=== PATIENT | female | born 1995 | race Caucasian/White ===

== ENCOUNTER 2017-03-14 18:10 | Emergency (ER) | payer OTHER ==
[~2017-03-14] VITALS: Ht 167.6 cm; Wt 63.5 kg
[~2017-03-14 18:10] MED LIST: AUGMENTIN 500-1 EACH PO; CIPROFLOXACIN500 M1 PO; HYDROCODONE-AP1 EAC6 PO; IBUPROFEN 800800 MG PO; MACROBID 100 M100 M1 PO; NOHOMEMEDICATIONS; PYRIDIUM200 MG PO
[2017-03-14 18:35] LABS: URINE BILIRUBIN NEGATIVE (Negative); URINE BLOOD 3+ (Negative); URINE CLARITY CLEAR; URINE COLOR YELLOW; URINE GLUCOSE-RANDOM NEGATIVE (Negative); URINE KETONES NEGATIVE (Negative); URINE LEUKOCYTES-REFLEX NEGATIVE (Negative); URINE NITRITE-REFLEX NEGATIVE (Negative); URINE PROTEIN TRACE (Negative); URINE SPECIFIC GRAVITY 1.015 (1.005-1.030); URINE UROBILINOGEN 0.2 E.U./dl (0.2-1.0)
[2017-03-14 18:43] LABS: ABSOLUTE EOSINOPHILS 0.1 thou/uL (0.0-0.7); ABSOLUTE LYMPHOCYTES 2.1 thou/uL (0.8-5.3); ABSOLUTE MONOCYTES 0.5 thou/uL (0.0-1.2); ABSOLUTE NEUTROPHILS 6.2 thou/uL (1.6-8.1); BASOPHILS 0.4 %; EOSINOPHILS 1.6 %; LYMPHOCYTES 23.6 %; MCH 29.8 pg (26.0-34.0); MCHC 33.5 g/dL (28.0-37.0); MONOCYTES 5.9 %; MPV 8.4 fl. (7.2-11.1); NUCLEATED RBCS 0 /100WBC; PLATELET COUNT* 245 thou/uL (150-400); POLYS 68.5 %; RBC 4.37 mil/uL (4.20-5.00); RDW-CV 14.2 % (10.5-14.5)
[2017-03-14 18:43] LABS: CASTS None Seen /LPF (None Seen); MUCUS 0-3 Light strn/LPF (None Seen); SQUAMOUS >10 Many /LPF (0-3); URINE RBC >20 Many /HPF (0-2)
[2017-03-14 18:44] LABS: BACTERIA-REFLEX 1-9 Few /HPF (None Seen); CRYSTALS None Seen /LPF (None Seen); URINE WBC-REFLEX 0-5 Rare /HPF (0-5)
[2017-03-14 18:51] LABS: CALCIUM 8.9 mg/dL (8.5-10.1); CREATININE 0.7 mg/dL (0.6-1.3); POTASSIUM 3.3 mmol/L (3.5-5.1)
[2017-03-14 18:56] LABS: ALBUMIN 4.1 g/dL (3.4-5.0); TOTAL BILIRUBIN 0.3 mg/dL (<0.1-1.0)
[2017-03-14 19:45] VITALS: BP 130/77
== END 2017-03-14 19:47 | disposition home or self-care (01) ==
LOC: M.ERS 18:10
PROVIDERS: Nurse Practitioner Family
DX: N92.4 Excessive bleeding in the premenopausal period (principal); J45.909 Unspecified asthma, uncomplicated